=== PATIENT | male | born 1960 | race Hispanic/Latino ===

== ENCOUNTER 2019-04-14 09:45 | Observation (INO) | payer BC, SELFPAY ==
[~2019-04-14] VITALS: Ht 177.8 cm; Wt 114.7 kg
[2019-04-14] VITALS (20 sets, daily range): BP systolic 117–154; BP diastolic 78–102
[2019-04-14] MEDS ORDERED: LIDOCAINE HCL 1% 20 ML VIAL ONE (11:06)
[2019-04-14] MEDS ORDERED: BUPIVACAINE/PF 0.5% 30ML VIAL ONE (11:06)
[2019-04-14] MEDS ORDERED: SODIUM CHLORIDE 0.9% 1000ML 1,000 ML IV ONE (11:27)
[2019-04-14] MEDS ORDERED: MIDAZOLAM HCL 1 MG/ML 2ML VIAL ONE ×2 (11:30→13:19)
[2019-04-14] MEDS ORDERED: FENTANYL CITRATE PF 50 MCG/1 ML 2ML VIAL ONE (11:30)
[2019-04-14] MEDS ORDERED: PROPOFOL 10 MG/ML 20ML VIAL IV ONE ×3 (11:30→15:27)
[2019-04-14] MEDS ORDERED: LIDOCAINE PF 2% 5ML ABBOJECT ONE (11:30)
[2019-04-14] MEDS ORDERED: AMLO-258 PO (11:51)
[2019-04-14] MEDS ORDERED: LOSA100T58 PO (11:51)
[2019-04-14] MEDS ORDERED: APIX2.5T PO (11:51)
[2019-04-14] MEDS ORDERED: CEFAZOLIN SODIUM 1 GM VIAL ONE (13:08)
[2019-04-14] MEDS ORDERED: ONDANSETRON HCL 4 MG/2 ML VIAL ONE (13:29)
[2019-04-14] MEDS ORDERED: NEOMY SULF/BACITRAC ZN/POLY OINT 30GM TUBE TP ONE (15:56)
[2019-04-14] MEDS ORDERED: DEXTROSE 50%-WATER 25 GM/50 ML VIAL ONE (16:30)
--- NOTE | 2019-04-14 20:40 | NUR ---
MEDS SHIFT ASSESSMENT DONE, PLEASE REFER TO CHART. PT CLAIMS OF SX PAINS ON RT FOOT. DUE MEDS ADMINISTERED, MORPHINE GIVEN FOR PAINS. PIV SALINE LOCKED. KEPT RESTED IN BED WITH RT FOOT ELEVATED. COLD PACKS APPLIED TO RT FOOT MD ORDERED. CALL LIGHT WITHIN REACH. WILL RE-ASSESS PT.
[2019-04-14] MEDS: MORPHINE SULFATE 2 MG/ML 1ML SYG IVP PRN (20:45)
[2019-04-14] MEDS ORDERED: AMLODIPINE BESYLATE 5 MG TAB PO SCH (21:00)
[2019-04-14] MEDS ORDERED: LOSARTAN 100 MG TABLET PO SCH (21:00)
--- NOTE | 2019-04-14 21:30 | NUR ---
KWESI MENDEZ NP FOR HOSPITALIST, ON THE FLOOR MAKING ROUNDS. 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 STATED WILL SEE PT AT THIS TIME.
[2019-04-14] MEDS ORDERED: HYDRALAZINE HCL 20 MG/ML VIAL IV PRN (22:00)
[2019-04-14 22:16] LABS: BASOPHILS % (AUTO) 0.3 % (0.0-5.0); EOSINOPHILS % (AUTO) 0.7 % (0.0-8.0); HEMATOCRIT 50.9 % (42-54); LYMPHOCYTES % (AUTO) 17.9 % (21.0-51.0); MEAN CORPUSCULAR VOLUME 85.4 fL (79-99); MONOCYTES % (AUTO) 11.5 % (3.0-13.0); NEUTROPHILS % (AUTO) 69.3 % (40.0-77.0); PLATELET COUNT (AUTO) 230 K/uL (130-400); RED BLOOD CELL COUNT(AUTO) 5.96 MIL/uL (4.50-6.20); RED CELL DISTRIBUTION WIDTH 13.2 % (11.0-15.5); WHITE BLOOD COUNT (AUTO) 11.6 K/uL (4.8-10.8)
--- NOTE | 2019-04-15 | NUR ---
PAIN PT COMPLAINTS OF PAINS TO RT FOOT. COLD PACKS APPLIED TO FOOT. MEDICATED WITH DILAUDID IV. KEPT COMFORTABLE. WILL RE-ASSESS PT. Addendum: 04/15/19 at 0032 by LYNDSEY YOUNG RN RN Amended: Links added.
[2019-04-15] MEDS: HYDROMORPHONE 1 MG/1 ML AMP IVP PRN ×2 (00:08→09:55)
--- NOTE | 2019-04-15 01:02 | NUR ---
RE-ASSESS PT RESTING IN BED, CLAIMS OF PAIN HAVING SUBSIDED. ENCOURAGED TO REST AND SLEEP. CALL LIGHT WITHIN REACH. WILL MONITOR PT.
[2019-04-15 03:37] VITALS: BP 135/84
[2019-04-15] MEDS: MORPHINE SULFATE 2 MG/ML 1ML SYG IVP PRN (05:05)
--- NOTE | 2019-04-15 05:05 | NUR ---
PAIN PT SLEPT AT SHORT INTERVALS DURING THE SHIFT. PT CLAIMS OF RT FOOT SX PAINS AT THIS TIME. MEDICATED WITH MORPHINE IV. KEPT COMFORTABLE IN BED. COLD PACK APPLIED TO SX SITE. WILL RE-ASSESS PT.
[2019-04-15 06:18] LABS: BASOPHILS % (AUTO) 0.2 % (0.0-5.0); EOSINOPHILS % (AUTO) 0.1 % (0.0-8.0); HEMATOCRIT 49.9 % (42-54); LYMPHOCYTES % (AUTO) 17.4 % (21.0-51.0); MEAN CORPUSCULAR HEMOGLOBIN 28.8 pg (27.0-33.0); MEAN CORPUSCULAR HGB CONC 33.9 g/dL (32.0-36.0); MONOCYTES % (AUTO) 14.1 % (3.0-13.0); NEUTROPHILS % (AUTO) 67.8 % (40.0-77.0); PLATELET COUNT (AUTO) 223 K/uL (130-400); RED BLOOD CELL COUNT(AUTO) 5.87 MIL/uL (4.50-6.20); RED CELL DISTRIBUTION WIDTH 13.1 % (11.0-15.5); WHITE BLOOD COUNT (AUTO) 10.4 K/uL (4.8-10.8)
[2019-04-15 06:25] LABS: HEMOGLOBIN A1C 5.7 % (4.0-6.0)
[2019-04-15 06:41] LABS: ALBUMIN 3.3 g/dL (3.5-5.0); BILIRUBIN,TOTAL 1.8 mg/dL (0.2-1.0); CREATININE 1.2 mg/dL (0.5-1.5); POTASSIUM 3.3 mmol/L (3.5-5.1); TOTAL PROTEIN, SERUM 7.1 g/dL (6.0-8.3)
[2019-04-15 06:45] LABS: INR 1.04 (0.85-1.15); PARTIAL THROMBOPLASTIN TIME 28.2 SEC (26.3-35.5); PROTHROMBIN TIME 10.9 SEC (9.6-11.6)
[2019-04-15 08:00] VITALS: BP 143/82
[2019-04-15] MEDS ORDERED: METOPROLOL SUCCINATE 50 MG TAB.SR.24H PO SCH (09:00)
[2019-04-15] MEDS ORDERED: FAMOTIDINE 20MG TAB 20 MG TAB PO SCH (09:00)
--- NOTE | 2019-04-15 09:47 | NUR ---
CHART REVIEWED: PATIENT IS OPP PATINET WITH NO TRIGGERS, READY TO DC TODAY; DETAILED CM ASESSMENT DEFERRED UNLESS PT DISTRICT MANAGER IN TRAINING RAISES CONCERNS Addendum: 04/15/19 at 0949 by GIANNI HOOPER RN CM Amended: Links added.
[2019-04-15] MEDS ORDERED: POTASSIUM CHLORIDE 20 MEQ ERTAB PO SCH (11:30)
[2019-04-15 12:00] VITALS: BP 138/81
--- NOTE | 2019-04-15 12:31 | NUR ---
I HAVE GIVEN PT D/C INSTRUCTIONS ON AFTER CARE FOR A BUIONECTOMY AND HAMMER TOE REPAIR; INCLUDING INSTRUCTIONS ON INC. LINE CAIRE, SIGNS AND SYMPTOMS OF POSSIBLE INFECTION TO WATCH FOR AND REPORT TO MD, TO LEAVE CURRENT DRESSING IN PLACE AND KEEP IT CLEAN AND DRY AT ALL TIMES AND IT WILL BE CHANGED AT DR LOW'S OFFICE TOMORROW; PT HAS ALSO BEEN [facility]UTCH TRAINED BY PHYSICAL THERAPY AND HE STATES UNDERSTANDING THAT HE NEEDS TO BE HEEL TOE WALKING. IV ACCESS REMOVED, TELE REMOVED AND PT HAS CALLED FAMILY TO COME AND PICK HIM UP. PT HAS POST OP SHOE AND CRUTCHES AT BEDSIDE.
== END 2019-04-15 13:18 | disposition home or self-care (01) ==
LOC: SUH 09:45 → DAH 09:45 → 4BH 09:46 → SUH 09:46
PROVIDERS: ADMIT Internal Medicine; ATTEND Internal Medicine
DX: M21.611 Bunion of right foot (principal); M20.41 Other hammer toe(s) (acquired), right foot; I48.20 Chronic atrial fibrillation, unspecified; E66.9 Obesity, unspecified; I10 Essential (primary) hypertension; E78.2 Mixed hyperlipidemia; I87.2 Venous insufficiency (chronic) (peripheral); I83.893 Varicose veins of bilateral lower extremities with other complications; E11.9 Type 2 diabetes mellitus without complications; Z79.01 Long term (current) use of anticoagulants; Z79.899 Other long term (current) drug therapy; Z68.36 Body mass index [BMI] 36.0-36.9, adult
CPT/HCPCS: 28285 ×2; 28292; 36415 ×2; 73630; 80053; 80061; 82948 ×6; 83036; 85025 ×2; 85610; 85730; 88305; 93005; 96374; 96375; 96376; 97116; 97161; A4215; A4221; A4222; A4223; A4600; A4649; A4663; A4930; A6446; C1713 ×2; G0378 ×23; G8978; G8979; G8980; G8981; G8982; G8983; J0690; J1170 ×2; J2001; J2250 ×2; J2405; J2704 ×3; J3010; J3490; J7030 ×3; J7070